=== PATIENT | female | born 1935 | race Caucasian/White ===

== ENCOUNTER 2023-09-09 08:30 | Day surgery (SDC) | payer OTHER ==
[2023-09-05 12:47] VITALS: BMI 19.3
[2023-09-09] MEDS ORDERED: CEFAZOLIN 2 GM VIAL ONE (09:23)
[2023-09-09] MEDS ORDERED: Lidocaine 1% w/Epinephrine 1:100K 20 ML VIAL ONE (09:24)
[2023-09-09] MEDS ORDERED: Dexamethasone 20 MG/5 ML VIAL ONE (09:28)
[2023-09-09] MEDS ORDERED: Rocuronium Bromide 10 MG/ML (10ML VIAL) ONE (09:28)
[2023-09-09] MEDS ORDERED: PROPOFOL 20 ML ONE (09:28)
[2023-09-09] MEDS ORDERED: Ondansetron PF 4 MG/2 ML Vial ONE (09:28)
[2023-09-09] MEDS ORDERED: Lidocaine 1% PF 5 ML VIAL ONE (09:29)
[2023-09-09] MEDS ORDERED: fentaNYL 50 mcg/mL 1 mL Vial ONE (09:29)
[2023-09-09] MEDS ORDERED: PHENYLEPHRINE-NS 100 MCG/ML 10 ML SYRINGE ONE (09:30)
[2023-09-09] MEDS ORDERED: SUGAMMADEX SODIUM 200 MG/2 ML VIAL ONE (09:33)
[2023-09-09] MEDS ORDERED: Dexmedetomidine 200 MCG/2 ML VIAL ONE (09:33)
[2023-09-09] MEDS ORDERED: HYDROcodone/Acetaminophen 5/325 mg Tablet ONE (12:04)
== END 2023-09-09 12:50 | disposition home or self-care (01) ==
LOC: CSHSDC 08:30
PROVIDERS: ATTEND Otolaryngology Plastic Surgery within the Head & Neck
PROC: 0GBL0ZZ Excision of Right Superior Parathyroid Gland, Open Approach (ICD-10-PCS; principal; 2023-09-09)
DX: D35.1 Benign neoplasm of parathyroid gland (principal); E21.3 Hyperparathyroidism, unspecified
CPT/HCPCS: 60500; 83970; J3010; 88305; 88331; J1100; J2405; J2704